=== PATIENT | male | born 1970 | race Two or more races ===

== ENCOUNTER 2018-04-30 12:17 | Emergency (ER) | payer OTHER ==
[~2018-04-30] VITALS: Ht 167.6 cm; Wt 71.0 kg
[2018-04-30] MEDS ORDERED: METHYLPREDNISOLONE SOD SUCC 125 MG/2 ML VIAL IM STA (18:27)
[2018-04-30] MEDS ORDERED: KETOROLAC 60MG/2ML VIAL IM STA (18:27)
[2018-04-30 18:31] VITALS: BP 140/90
== END 2018-04-30 19:12 | disposition left against medical advice (07) ==
LOC: ER 12:17
DX: M25.561 Pain in right knee (principal)
CPT/HCPCS: 96372; 99283; J1885; J2930; 99284